=== PATIENT | female | born 1940 | race Caucasian/White ===

== ENCOUNTER → 2019-08-07 | Emergency (ER) | payer OTHER ==
[~2019-08-07] VITALS: Ht 157.5 cm; Wt 55.8 kg
[2019-08-07 15:59] VITALS: BP_SYST 119
--- NOTE | 2019-08-07 17:09 | NUR ---
Patient given written and verbal discharge instructions and verbalizes understanding. ER MD discussed with patient the results and treatment provided. Patient in stable condition. ID arm band removed. Rx of Tramdol given. Patient educated on pain management and to follow up with PMD. Pain Scale 3/10Opportunity for questions provided and answered. Medication side effect fact sheet provided.
--- NOTE | 2019-08-07 17:15 | NUR ---
ER at bedside examining patient.
--- NOTE | 2019-08-07 17:35 | NUR ---
pt currently gettin an x-ray at the bedside
--- NOTE | 2019-08-07 17:40 | NUR ---
gino wrap applied to the left knee
[2019-08-07 18:10] VITALS: BP_SYST 119
--- NOTE | 2019-08-07 18:10 | NUR ---
Patient given written and verbal discharge instructions and verbalizes understanding. ER MD discussed with patient the results and treatment provided. Patient in stable condition. ID arm band removed. Patient educated on pain management and to follow up with PMD. Pain Scale 3/10. Opportunity for questions provided and answered. Medication side effect fact sheet provided.
== END | disposition still patient (30) ==
LOC: SED 15:41
DX: S83.92XA Sprain of unspecified site of left knee, initial encounter (principal); S63.501A Unspecified sprain of right wrist, initial encounter; J45.909 Unspecified asthma, uncomplicated; I10 Essential (primary) hypertension; Z88.5 Allergy status to narcotic agent; W01.0XXA Fall on same level from slipping, tripping and stumbling without subsequent striking against object, initial encounter; Y93.89 Activity, other specified; Y92.89 Other specified places as the place of occurrence of the external cause; Y99.8 Other external cause status
CPT/HCPCS: 73564; 99283

== ENCOUNTER 2020-06-29 01:51 | Emergency (ER) | payer OTHER ==
[~2020-06-29] VITALS: Ht 152.4 cm; Wt 61.2 kg
[2020-06-29 01:55] VITALS: BP_SYST 155
--- NOTE | 2020-06-29 01:55 | NUR ---
Placed in room 5 . Placed on child monitor, blood pressure machine and pulse oximeter. To gown for exam. Side rails up. Report given to Anjali KUO.
--- NOTE | 2020-06-29 01:56 | NUR ---
ER at bedside examining patient.
[2020-06-29] MEDS ORDERED: NACL 0.9% 1,000 ML IV ONE (02:30)
[2020-06-29 02:53] LABS: BASOPHILS % (AUTO) 0.6 % (0.0-2.0); EOSINOPHILS # (AUTO) 0.3 K/uL (0.0-0.4); LYMPHOCYTES # (AUTO) 2.2 K/uL (1.0-5.5); MEAN CORPUSCULAR HEMOGLOBIN 29 pg (27-31); MONOCYTES # (AUTO) 0.5 K/uL (0.0-1.0); WHITE BLOOD COUNT (AUTO) 6.9 K/uL (4.8-10.8)
[2020-06-29 03:05] LABS: EOSINOPHILS % (AUTO) 3.8 % (0.0-4.0); HEMATOCRIT 39.8 % (36-48); HEMOGLOBIN 13.1 g/dL (12.0-16.0); LYMPHOCYTES % (AUTO) 31.5 % (20.5-51.5); MEAN CORPUSCULAR HGB CONC 33 % (32-36); MEAN CORPUSCULAR VOLUME 86 fL (79.0-98.0); MONOCYTES % (AUTO) 7.4 % (1.7-9.3); NEUTROPHILS # (AUTO) 3.9 K/uL (1.8-7.7); NEUTROPHILS % (AUTO) 56.7 % (40.0-70.0); PLATELET COUNT (AUTO) 273 K/uL (130-430); RED BLOOD CELL COUNT(AUTO) 4.61 MIL/uL (4.2-6.2); RED CELL DISTRIBUTION WIDTH 14.5 % (9.0-15.0)
[2020-06-29 03:06] LABS: ANION GAP 2 (5-15); CALCIUM 8.3 mg/dL (8.4-11.0); CHLORIDE 105 mmol/L (98-107); CREATININE 1.14 mg/dL (0.55-1.30); GLUCOSE 85 mg/dL (70-99); POTASSIUM 4.1 mmol/L (3.5-5.1); SODIUM SERUM 138 mmol/L (136-145); UREA NITROGEN, BLOOD 34 mg/dL (8-21)
[2020-06-29 03:09] LABS: PROTHROMBIN TIME 10.2 SECS (9.5-12.5)
[2020-06-29 03:18] LABS: ALANINE AMINOTRANSFERASE 35 U/L (12-78); ALBUMIN 3.2 g/dL (3.4-4.8); ASPARTATE AMINOTRANSFERASE 24 U/L (10-37); TOTAL BILIRUBIN 0.2 mg/dL (0.0-1.0)
[2020-06-29 03:19] LABS: ALCOHOL, BLOOD < 3 mg/dL (<10)
--- NOTE | 2020-06-29 03:30 | NUR ---
IV STARTED RT HAND #20 NS 1000ML BOLUS STARTED
--- NOTE | 2020-06-29 03:40 | NUR ---
PT GIVEN SWALLOW TESTS NO DIFFICULTY SWALLOWING WATER
--- NOTE | 2020-06-29 04:06 | NUR ---
PT AMBULATED TO BR ;VOIDED URINE SPECIMEN TO LAB
[2020-06-29 04:18] LABS: BILIRUBIN,URINE NEGATIVE (NEGATIVE); BLOOD, URINE 1+ (NEGATIVE); CLARITY/URINE CLEAR (CLEAR); COLOR,URINE YELLOW (YELLOW); GLUCOSE,URINE NEGATIVE (NEGATIVE); KETONES,URINE NEGATIVE (NEGATIVE); LEUKOCYTE ESTERASE ,URINE TRACE (NEGATIVE); NITRITE, URINE NEGATIVE (NEGATIVE); PROTEIN URINE NEGATIVE (NEGATIVE); UROBILINOGEN,URINE 0.2 (0.2-1.0)
[2020-06-29 04:21] LABS: BARBITURATE, URINE NEGATIVE (NEG <=200); BENZODIAZEPINE, URINE NEGATIVE (NEG <=150); CANNABINOID, URINE NEGATIVE (NEG <=50); COCAINE, URINE NEGATIVE (NEG <=150); METHAMPHETAMINES SCREEN,URINE NEGATIVE (NEG <=500); OPIATE, URINE NEGATIVE (NEG <=100); PHENCYCLIDINE SCREEN,URINE NEGATIVE (NEG <=25); UR TRICYCLIC ANTIDEPRESSANTS NEGATIVE (NEG <=300); URINE AMPHETAMINE NEGATIVE (NEG <=500); URINE METHADONE NEGATIVE (NEG <=200); URINE OXYCODONE SCREEN NEGATIVE (NEG <=100); URINE PROPOXYPHENE SCREEN NEGATIVE (NEG <=300)
[2020-06-29 04:26] LABS: BACTERIA,URINE RARE /HPF (None Seen); RBC,URINE 0-3 /HPF (0-3)
--- NOTE | 2020-06-29 05:03 | NUR ---
DR FARIAS ADVISED PT REQUESTING TO GO HOME
--- NOTE | 2020-06-29 05:25 | NUR ---
PT DISCHGED WITH AFTERCARE INSTRUCTIONS AND RX GIVEN AND UNDERSTOOD IV DCD SITE WNL AOX4 RESP EVEN STABLE
[2020-06-29 05:30] VITALS: BP_SYST 136
== END 2020-06-29 05:25 | disposition home or self-care (01) ==
LOC: SED 01:51
DX: R41.82 Altered mental status, unspecified (principal); N39.0 Urinary tract infection, site not specified; T42.6X5A Adverse effect of other antiepileptic and sedative-hypnotic drugs, initial encounter; J45.909 Unspecified asthma, uncomplicated; I10 Essential (primary) hypertension; Z20.828 Contact with and (suspected) exposure to other viral communicable diseases; Z88.5 Allergy status to narcotic agent; Z88.8 Allergy status to other drugs, medicaments and biological substances; Y92.89 Other specified places as the place of occurrence of the external cause
CPT/HCPCS: 36415; 70450; 71045; 80053; 80307; 81000; 85025; 85610; 85730; 87426; 93005; 96360; 99285; G0482; J7030

== ENCOUNTER 2023-12-01 14:53 | Inpatient (IN) | payer OTHER ==
[~2023-12-01] VITALS: Ht 156.2 cm; Wt 65.8 kg
[~2023-12-01 14:53] MED LIST: AMLO2.5T50 PO; BUDE0.25 IH; DONE10TA44 PO; ESCI10TA PO; LISI40TA13 PO; LORA10TA7 PO; MEMA5TAB PO; MONT-47 PO; OMEP40CA20 PO; OSCD500 PO; PANT40TA45 PO; SIMV-341 PO; SUCR1TAB2 PO
[2023-12-01 14:57] VITALS: BP_SYST 104; PULSE 72; RESP 18; TEMP 98.3; O2SAT 97
[2023-12-01 15:59] LABS: BASOPHILS # (AUTO) 0.1 K/uL (0.0-0.2); BASOPHILS % (AUTO) 0.6 % (0.0-2.0); EOSINOPHILS # (AUTO) 0.2 K/uL (0.0-0.4); EOSINOPHILS % (AUTO) 2.1 % (0.0-4.0); HEMOGLOBIN 11.8 g/dL (12.0-16.0); LYMPHOCYTES # (AUTO) 1.9 K/uL (1.0-5.5); LYMPHOCYTES % (AUTO) 15.8 % (20.5-51.5); MEAN CORPUSCULAR HEMOGLOBIN 27 pg (27-31); MEAN CORPUSCULAR HGB CONC 33 % (32-36); MEAN CORPUSCULAR VOLUME 83 fL (79.0-98.0); MONOCYTES # (AUTO) 0.7 K/uL (0.0-1.0); MONOCYTES % (AUTO) 5.7 % (1.7-9.3); NEUTROPHILS # (AUTO) 9.1 K/uL (1.8-7.7); NEUTROPHILS % (AUTO) 75.8 % (40.0-70.0); PLATELET COUNT (AUTO) 326 K/uL (130-430); RED BLOOD CELL COUNT(AUTO) 4.33 MIL/uL (4.2-6.2); RED CELL DISTRIBUTION WIDTH 14.5 % (9.0-15.0)
[2023-12-01 16:20] LABS: ANION GAP 12 (5-15); CALCIUM 8.9 mg/dL (8.4-11.0); CARBON DIOXIDE 25 mmol/L (23-29); CHLORIDE 103 mmol/L (98-107); CREATININE 1.97 mg/dL (0.55-1.30); GLUCOSE 126 mg/dL (74-106); POTASSIUM 3.8 mmol/L (3.5-5.1); SODIUM SERUM 140 mmol/L (136-145); UREA NITROGEN, BLOOD 55 mg/dL (8-21)
[2023-12-01 16:27] LABS: ALANINE AMINOTRANSFERASE 16 U/L (12-78); ALBUMIN 2.8 g/dL (3.4-4.8); ASPARTATE AMINOTRANSFERASE < 5 U/L (10-37); BILIRUBIN,DIRECT 0.1 mg/dL (0.0-0.3); LIPASE 56 U/L (16-77); TOTAL BILIRUBIN 0.4 mg/dL (0.0-1.0); TOTAL PROTEIN, SERUM 6.3 g/dL (6.4-8.3)
[2023-12-01 16:55] LABS: BILIRUBIN,URINE NEGATIVE (NEGATIVE); BLOOD, URINE 1+ (NEGATIVE); CLARITY/URINE HAZY (CLEAR); COLOR,URINE YELLOW (YELLOW); GLUCOSE,URINE NEGATIVE (NEGATIVE); KETONES,URINE TRACE (NEGATIVE); LEUKOCYTE ESTERASE ,URINE 2+ (NEGATIVE); NITRITE, URINE NEGATIVE (NEGATIVE); PH,URINE 5.5 (5.0-8.0); PROTEIN URINE NEGATIVE (NEGATIVE); UROBILINOGEN,URINE 0.2 (0.2-1.0)
[2023-12-01 17:28] LABS: BACTERIA,URINE MANY /HPF (None Seen); WBC,URINE 20-50 /HPF (0-3)
[2023-12-01] MEDS ORDERED: SENN-307 PO (17:32)
[2023-12-01] MEDS ORDERED: PRED20TA PO (17:32)
[2023-12-01] MEDS ORDERED: LIP10 PO (17:32)
[2023-12-01] MEDS ORDERED: MULT-1117 PO (17:32)
[2023-12-01] MEDS: NACL 0.9% 1,000 ML IV ONE ×2 (17:44→18:15)
[2023-12-01] MEDS ORDERED: ACETAMINOPHEN 325 MG TABLET PO PRN (17:45)
[2023-12-01] MEDS ORDERED: cefTRIAXone 1 GM VIAL ONE (18:11)
[2023-12-01] MEDS: cefTRIAXone 1 GM in D5W 50 ML IV ONE (18:15)
[2023-12-01] MEDS: SENNOSIDES/DOCUSATE SODIUM 1 TAB TABLET(SENOKOT-S) PO SCH (21:00)
[2023-12-01 21:03] VITALS: BP_SYST 123; PULSE 64; RESP 18; TEMP 98.7
[2023-12-01 21:30] VITALS: O2SAT 96
[2023-12-01] MEDS: DONEPEZIL HCL 5 MG TABLET (ARICEPT) PO SCH (22:37)
[2023-12-01 23:32] VITALS: BP_SYST 117; PULSE 61; TEMP 97.6; O2SAT 96
[2023-12-02 05:11] LABS: BASOPHILS % (AUTO) 0.5 % (0.0-2.0); EOSINOPHILS # (AUTO) 0.3 K/uL (0.0-0.4); EOSINOPHILS % (AUTO) 3.4 % (0.0-4.0); HEMATOCRIT 34.9 % (36-48); HEMOGLOBIN 11.6 g/dL (12.0-16.0); LYMPHOCYTES # (AUTO) 1.7 K/uL (1.0-5.5); LYMPHOCYTES % (AUTO) 19.6 % (20.5-51.5); MEAN CORPUSCULAR HEMOGLOBIN 28 pg (27-31); MEAN CORPUSCULAR HGB CONC 33 % (32-36); MEAN CORPUSCULAR VOLUME 84 fL (79.0-98.0); MONOCYTES # (AUTO) 0.6 K/uL (0.0-1.0); MONOCYTES % (AUTO) 6.8 % (1.7-9.3); NEUTROPHILS % (AUTO) 69.7 % (40.0-70.0); PLATELET COUNT (AUTO) 319 K/uL (130-430); RED BLOOD CELL COUNT(AUTO) 4.16 MIL/uL (4.2-6.2); RED CELL DISTRIBUTION WIDTH 14.6 % (9.0-15.0); WHITE BLOOD COUNT (AUTO) 8.5 K/uL (4.8-10.8)
[2023-12-02 05:44] LABS: ALANINE AMINOTRANSFERASE 16 U/L (12-78); ALBUMIN 2.6 g/dL (3.4-4.8); ANION GAP 9 (5-15); ASPARTATE AMINOTRANSFERASE < 5 U/L (10-37); CALCIUM 8.5 mg/dL (8.4-11.0); CARBON DIOXIDE 27 mmol/L (23-29); CHLORIDE 102 mmol/L (98-107); CREATININE 1.58 mg/dL (0.55-1.30); GLUCOSE 105 mg/dL (74-106); POTASSIUM 3.7 mmol/L (3.5-5.1); SODIUM SERUM 138 mmol/L (136-145); TOTAL BILIRUBIN 0.3 mg/dL (0.0-1.0); UREA NITROGEN, BLOOD 46 mg/dL (8-21)
[2023-12-02 08:27] VITALS: BP_SYST 125; PULSE 63; RESP 17; TEMP 96.8; O2SAT 96
[2023-12-02] MEDS ORDERED: ESCITALOPRAM OXALATE 10 MG TABLET PO SCH (09:00)
[2023-12-02] MEDS: SIMVASTATIN 10 MG TABLET PO SCH (09:54)
[2023-12-02] MEDS: MEMANTINE HCL 5 MG TABLET PO SCH (09:54)
[2023-12-02] MEDS: CITALOPRAM HYDROBROMIDE 20 MG TABLET PO SCH (09:54)
[2023-12-02 12:52] VITALS: BP_SYST 127; PULSE 71; RESP 15; TEMP 97.8; O2SAT 97
[2023-12-02] MEDS ORDERED: AMLO5TAB92 PO (13:34)
[2023-12-02 19:00] VITALS: BP_SYST 145; PULSE 62; RESP 17; TEMP 97.5; O2SAT 100
[2023-12-02] MEDS: cefTRIAXone 1 GM IVPB PREMIX 50 ML IV SCH (20:59)
[2023-12-02] MEDS: cefTRIAXone 1 GM IVPB PREMIX 50 ML IV ONE (21:00)
[2023-12-02] MEDS: CALCIUM CARBONATE 500 MG/ TAB.CHEW PO PRN (22:45)
[2023-12-02 23:00] VITALS: O2SAT 100
[2023-12-03] VITALS: BP_SYST 167; PULSE 65; RESP 17; TEMP 98; O2SAT 99
[2023-12-03] MEDS: ONDANSETRON HCL 4 MG/2 ML VIAL IVP PRN (00:50)
[2023-12-03 04:12] VITALS: BP_SYST 145; PULSE 62; RESP 16; TEMP 97.5; O2SAT 100
[2023-12-03 05:45] VITALS: BP_SYST 147; PULSE 71; RESP 17; TEMP 97.2; O2SAT 97
[2023-12-03 07:02] LABS: BASOPHILS # (AUTO) 0.1 K/uL (0.0-0.2); BASOPHILS % (AUTO) 0.7 % (0.0-2.0); EOSINOPHILS # (AUTO) 0.2 K/uL (0.0-0.4); EOSINOPHILS % (AUTO) 2.8 % (0.0-4.0); HEMATOCRIT 37.6 % (36-48); HEMOGLOBIN 12.4 g/dL (12.0-16.0); LYMPHOCYTES # (AUTO) 1.5 K/uL (1.0-5.5); LYMPHOCYTES % (AUTO) 16.8 % (20.5-51.5); MEAN CORPUSCULAR HEMOGLOBIN 27 pg (27-31); MEAN CORPUSCULAR HGB CONC 33 % (32-36); MEAN CORPUSCULAR VOLUME 83 fL (79.0-98.0); MONOCYTES # (AUTO) 0.6 K/uL (0.0-1.0); MONOCYTES % (AUTO) 6.6 % (1.7-9.3); NEUTROPHILS # (AUTO) 6.4 K/uL (1.8-7.7); NEUTROPHILS % (AUTO) 73.1 % (40.0-70.0); PLATELET COUNT (AUTO) 353 K/uL (130-430); RED BLOOD CELL COUNT(AUTO) 4.53 MIL/uL (4.2-6.2); RED CELL DISTRIBUTION WIDTH 14.1 % (9.0-15.0); WHITE BLOOD COUNT (AUTO) 8.8 K/uL (4.8-10.8)
[2023-12-03 07:25] LABS: ALANINE AMINOTRANSFERASE 25 U/L (12-78); ALBUMIN 2.9 g/dL (3.4-4.8); ANION GAP 7 (5-15); ASPARTATE AMINOTRANSFERASE 7 U/L (10-37); CALCIUM 8.8 mg/dL (8.4-11.0); CARBON DIOXIDE 27 mmol/L (23-29); CHLORIDE 103 mmol/L (98-107); CREATININE 1.15 mg/dL (0.55-1.30); GLUCOSE 92 mg/dL (74-106); POTASSIUM 4.4 mmol/L (3.5-5.1); SODIUM SERUM 137 mmol/L (136-145); TOTAL BILIRUBIN 0.4 mg/dL (0.0-1.0); TOTAL PROTEIN, SERUM 6.5 g/dL (6.4-8.3); UREA NITROGEN, BLOOD 23 mg/dL (8-21)
[2023-12-03 08:36] VITALS: BP_SYST 153; PULSE 69; RESP 15; TEMP 99; O2SAT 97
[2023-12-03] MEDS: POLYETHYLENE GLYCOL 3350, 17 GM/ POWD.PACK PO SCH (09:56)
[2023-12-03] MEDS: POLYETHYLENE GLYCOL 3350, 17 GM/ POWD.PACK PO ONE (09:56)
[2023-12-03] MEDS ORDERED: CEPH250C PO (11:37)
[2023-12-03] MEDS ORDERED: SUCR1TAB2 PO (11:56)
[2023-12-03 13:30] VITALS: BP_SYST 134; PULSE 68; RESP 16; TEMP 99; O2SAT 98
[2023-12-03] MEDS: SUCRALFATE 1 GM/10 ML UDC GT ONE (13:51)
[2023-12-03] MEDS: PANTOPRAZOLE SODIUM 40 MG/VIAL (PROTONIX) IVP ONE (13:51)
[2023-12-03] MEDS: amLODIPine BESYLATE 5 MG TABLET PO ONE (13:51)
[2023-12-03 13:55] VITALS: BP_SYST 134; PULSE 68; RESP 15; TEMP 99; O2SAT 98
[2023-12-03] MEDS ORDERED: SUCRALFATE 1 GM TABLET PO SCH (17:00)
[2023-12-04] MEDS ORDERED: amLODIPine BESYLATE 5 MG TABLET PO SCH (09:00)
== END 2023-12-03 14:20 | disposition home or self-care (01) | DRG 683 ==
LOC: SED 14:53 → STU 17:41 → SMU 12-03 10:31 → STU 12-03 11:14
PROVIDERS: ADMIT Family Medicine; ATTEND Family Medicine
DX: N17.9 Acute kidney failure, unspecified (principal); E44.0 Moderate protein-calorie malnutrition; N39.0 Urinary tract infection, site not specified; E86.0 Dehydration; R55 Syncope and collapse; J45.909 Unspecified asthma, uncomplicated; I10 Essential (primary) hypertension; F03.90 Unspecified dementia, unspecified severity, without behavioral disturbance, psychotic disturbance, mood disturbance, and anxiety; D72.829 Elevated white blood cell count, unspecified; E78.5 Hyperlipidemia, unspecified; Z79.899 Other long term (current) drug therapy; Z88.5 Allergy status to narcotic agent; Z68.27 Body mass index [BMI] 27.0-27.9, adult
CPT/HCPCS: 36415; 70450-TC; 71045; 80048; 80053; 80076; 81000; 81001; 81015; 83605; 83690; 84484; 85025; 87040; 87086; 87186; 93005; 93306; 93880; 96361; 96365; 97110-GP; 97112-GP; 97116-GP; 97530-GP; 99285; C9113; G0378; J0696; J2405

== ENCOUNTER 2023-12-08 08:30 | Inpatient (IN) | payer OTHER ==
[~2023-12-08] VITALS: Ht 152.4 cm; Wt 62.3 kg
[~2023-12-08 08:30] MED LIST changes: +AMLO5TAB92 PO; +CEPH250C PO; +LIP10 PO; +MULT-1117 PO; +PRED20TA PO; +SENN-307 PO
[2023-12-08 08:39] VITALS: BP_SYST 149; PULSE 71; RESP 20; TEMP 97.9; O2SAT 98
[2023-12-08] MEDS: MAG-AL HYDROX/SIMETH 30 ML UDC PO ONE (09:03)
[2023-12-08] MEDS: FAMOTIDINE 20 MG TABLET PO ONE (09:03)
[2023-12-08 09:46] LABS: BASOPHILS # (AUTO) 0.1 K/uL (0.0-0.2); BASOPHILS % (AUTO) 0.7 % (0.0-2.0); EOSINOPHILS # (AUTO) 0.2 K/uL (0.0-0.4); EOSINOPHILS % (AUTO) 2.3 % (0.0-4.0); HEMATOCRIT 33.7 % (36-48); HEMOGLOBIN 11.1 g/dL (12.0-16.0); LYMPHOCYTES # (AUTO) 1.1 K/uL (1.0-5.5); MEAN CORPUSCULAR HEMOGLOBIN 27 pg (27-31); MEAN CORPUSCULAR HGB CONC 33 % (32-36); MEAN CORPUSCULAR VOLUME 83 fL (79.0-98.0); MONOCYTES # (AUTO) 0.4 K/uL (0.0-1.0); MONOCYTES % (AUTO) 5.5 % (1.7-9.3); NEUTROPHILS # (AUTO) 6.1 K/uL (1.8-7.7); NEUTROPHILS % (AUTO) 77.5 % (40.0-70.0); PLATELET COUNT (AUTO) 466 K/uL (130-430); RED BLOOD CELL COUNT(AUTO) 4.08 MIL/uL (4.2-6.2); RED CELL DISTRIBUTION WIDTH 14.4 % (9.0-15.0); WHITE BLOOD COUNT (AUTO) 7.8 K/uL (4.8-10.8)
[2023-12-08 10:01] LABS: ANION GAP 7 (5-15); CALCIUM 9.7 mg/dL (8.4-11.0); CARBON DIOXIDE 28 mmol/L (23-29); CHLORIDE 102 mmol/L (98-107); CREATININE 1.03 mg/dL (0.55-1.30); GLUCOSE 98 mg/dL (74-106); SODIUM SERUM 137 mmol/L (136-145); UREA NITROGEN, BLOOD 15 mg/dL (8-21)
[2023-12-08 10:08] LABS: ALANINE AMINOTRANSFERASE 17 U/L (12-78); ALBUMIN 2.6 g/dL (3.4-4.8); ASPARTATE AMINOTRANSFERASE 18 U/L (10-37); BILIRUBIN,DIRECT 0.1 mg/dL (0.0-0.3); LIPASE 39 U/L (16-77); TOTAL BILIRUBIN 0.3 mg/dL (0.0-1.0); TOTAL PROTEIN, SERUM 6.6 g/dL (6.4-8.3)
[2023-12-08] MEDS: fentaNYL CITRATE/PF 100 MCG/2 ML AMP IVP ONE (11:10)
[2023-12-08] MEDS: D5/0.45 NS 1,000 ML IV SCH (12:20)
[2023-12-08 13:53] VITALS: BP_SYST 167; PULSE 64; RESP 16; TEMP 98.4; O2SAT 98
[2023-12-08] MEDS ORDERED: LABETALOL HCL 20 MG/4 ML CARTRIDGE IVP PRN ×2 (14:30→15:04)
[2023-12-08 16:00] VITALS: BP_SYST 152; PULSE 65; RESP 16; TEMP 97.9; O2SAT 98
[2023-12-08] MEDS: SUCRALFATE 1 GM TABLET PO SCH (16:12)
[2023-12-08] MEDS: PANTOPRAZOLE SODIUM 40 MG/VIAL (PROTONIX) IVP ONE (16:12)
[2023-12-08] MEDS: LIDOCAINE PATCH 5% 1 EA TP ONE (16:12)
[2023-12-08] MEDS: amLODIPine BESYLATE 5 MG TABLET PO ONE (16:26)
[2023-12-08 19:50] VITALS: BP_SYST 156; PULSE 66; RESP 20; TEMP 97.4; O2SAT 96
[2023-12-08] MEDS: DONEPEZIL HCL 5 MG TABLET (ARICEPT) PO SCH (20:38)
[2023-12-08] MEDS: PANTOPRAZOLE SODIUM 40 MG/VIAL (PROTONIX) IVP SCH (20:38)
[2023-12-08] MEDS: SENNOSIDES/DOCUSATE SODIUM 1 TAB TABLET(SENOKOT-S) PO SCH (20:38)
[2023-12-08] MEDS: ENALAPRILAT DIHYDRATE 1.25 MG/ML VIAL IVP PRN (20:38)
[2023-12-09 01:00] VITALS: BP_SYST 126; PULSE 64; RESP 16; TEMP 97.2; O2SAT 95
[2023-12-09 08:00] VITALS: O2SAT 97
[2023-12-09 08:33] VITALS: BP_SYST 123; PULSE 71; RESP 18; TEMP 98.5; O2SAT 97
[2023-12-09] MEDS: CALCIUM CARBONATE/VITAMIN D3 1 TAB TABLET PO SCH (09:00)
[2023-12-09] MEDS: amLODIPine BESYLATE 5 MG TABLET PO SCH (09:00)
[2023-12-09] MEDS: MEMANTINE HCL 5 MG TABLET PO SCH (09:00)
[2023-12-09] MEDS: LIDOCAINE PATCH 5% 1 EA TP SCH (09:00)
[2023-12-09] MEDS: MULTIVITAMINS TAB 1 TABLET PO SCH (09:00)
[2023-12-09] MEDS: ATORVASTATIN 10 MG TABLET PO SCH (09:00)
[2023-12-09] MEDS: MIDAZOLAM HCL 5 MG/5 ML VIAL ONE (09:36)
[2023-12-09] MEDS: fentaNYL CITRATE/PF 100 MCG/2 ML AMP ONE (09:36)
[2023-12-09] MEDS ORDERED: SEVOFLURANE 15 MIN GAS INH ONE (10:45)
[2023-12-09] MEDS ORDERED: ePHEDrine sulfate 50 MG/ML VIAL ONE (10:45)
[2023-12-09] MEDS ORDERED: LIDOCAINE/EPI 1% 1:100000 20 ML VIAL ONE (10:45)
[2023-12-09] MEDS ORDERED: PROPOFOL 200MG/ 20ML VIAL (DIPRIVAN) IV ONE (10:45)
[2023-12-09] MEDS ORDERED: BUPIVACAINE /PF 0.25% 30 ML VIAL INJ ONE (10:45)
[2023-12-09] MEDS ORDERED: LR 1,000 ML IV.SOLN IV ONE (10:45)
[2023-12-09] MEDS ORDERED: DEXAMETHASONE SOD PHOSPHATE 4 MG/ML VIAL ONE (10:45)
[2023-12-09] MEDS ORDERED: SUCCINYLCHOLINE CHLORIDE 20 MG/ML(QUELICIN) ONE (10:45)
[2023-12-09] MEDS ORDERED: ONDANSETRON HCL 4 MG/2 ML VIAL ONE (10:45)
[2023-12-09] MEDS ORDERED: GLYCOPYRROLATE 0.2 MG/ML VIAL ONE (10:45)
[2023-12-09] MEDS ORDERED: ROCURONIUM BROMIDE 10 MG/ML (ZEMURON) ONE (10:45)
[2023-12-09 11:15] VITALS: BP_SYST 121; PULSE 62; RESP 18; TEMP 98.2; O2SAT 97
[2023-12-09 12:22] LABS: PROTHROMBIN TIME 10.2 SECS (9.5-12.5)
[2023-12-09] MEDS: PIPERACILLIN/TAZO 3.375 GM in D5W 50 ML IV SCH (14:00)
[2023-12-09] MEDS: ACETAMINOPHEN I.V. 1000 MG 100 ML IV ONE (14:09)
[2023-12-09] MEDS: HYDROmorphone 2 MG/ML VIAL ONE (14:09)
[2023-12-09] MEDS ORDERED: PANT40TA45 PO (14:34)
[2023-12-09] MEDS ORDERED: MONT-40 PO (14:34)
[2023-12-09] MEDS ORDERED: [UNRECOGNIZED DRUG - CODE] PO (14:34)
[2023-12-09] MEDS ORDERED: MEMA10TA PO (14:34)
[2023-12-09] MEDS ORDERED: SUCR1TAB2 PO (14:34)
[2023-12-09] MEDS ORDERED: BUDE10.7 INH (14:40)
[2023-12-09] MEDS ORDERED: MORPHINE 4 MG INJ. 4 MG/ML VIAL IVP PRN ×2 (15:45)
[2023-12-09] MEDS ORDERED: METOCLOPRAMIDE HCL 10 MG/2 ML VIAL IVP PRN (15:45)
[2023-12-09] MEDS ORDERED: ONDANSETRON HCL 4 MG/2 ML VIAL IVP PRN (15:45)
[2023-12-09] MEDS ORDERED: NALOXONE HCL 0.4 MG/ML AMP (NARCAN) IVP PRN (15:45)
[2023-12-09] MEDS ORDERED: HYDROmorphone 1 MG/ML INJ. CARTRIDGE IVP PRN (15:45)
[2023-12-09 17:04] VITALS: BP_SYST 129; PULSE 74; RESP 16; TEMP 97.4; O2SAT 97
[2023-12-09 20:20] VITALS: BP_SYST 126; PULSE 70; RESP 18; TEMP 97.6; O2SAT 100
[2023-12-09] MEDS: HYDROmorphone 1 MG/ML INJ. CARTRIDGE IM PRN (23:34)
[2023-12-10 00:05] VITALS: BP_SYST 104; PULSE 71; RESP 18; TEMP 97.7; O2SAT 94
[2023-12-10 07:09] LABS: HEMATOCRIT 31.7 % (36-48); HEMOGLOBIN 10.5 g/dL (12.0-16.0); LYMPHOCYTES # (AUTO) 0.8 K/uL (1.0-5.5); LYMPHOCYTES % (AUTO) 6.9 % (20.5-51.5); MEAN CORPUSCULAR HEMOGLOBIN 28 pg (27-31); MEAN CORPUSCULAR HGB CONC 33 % (32-36); MEAN CORPUSCULAR VOLUME 83 fL (79.0-98.0); MONOCYTES # (AUTO) 0.3 K/uL (0.0-1.0); MONOCYTES % (AUTO) 2.3 % (1.7-9.3); NEUTROPHILS # (AUTO) 10.9 K/uL (1.8-7.7); NEUTROPHILS % (AUTO) 90.8 % (40.0-70.0); PLATELET COUNT (AUTO) 478 K/uL (130-430); RED BLOOD CELL COUNT(AUTO) 3.82 MIL/uL (4.2-6.2); RED CELL DISTRIBUTION WIDTH 14.4 % (9.0-15.0)
[2023-12-10 07:29] LABS: ALANINE AMINOTRANSFERASE 54 U/L (12-78); ALBUMIN 2.3 g/dL (3.4-4.8); ANION GAP 7 (5-15); ASPARTATE AMINOTRANSFERASE 68 U/L (10-37); CALCIUM 8.3 mg/dL (8.4-11.0); CARBON DIOXIDE 27 mmol/L (23-29); CHLORIDE 101 mmol/L (98-107); CREATININE 1.02 mg/dL (0.55-1.30); GLUCOSE 149 mg/dL (74-106); POTASSIUM 4.2 mmol/L (3.5-5.1); SODIUM SERUM 135 mmol/L (136-145); TOTAL BILIRUBIN 0.2 mg/dL (0.0-1.0); UREA NITROGEN, BLOOD 14 mg/dL (8-21)
[2023-12-10 08:00] VITALS: BP_SYST 109; PULSE 74; RESP 17; TEMP 98; O2SAT 94
[2023-12-10 10:09] VITALS: O2SAT 99
[2023-12-10] MEDS ORDERED: ONDANSETRON HCL 4 MG/2 ML VIAL IVP PRN (13:00)
[2023-12-10 15:00] VITALS: BP_SYST 110; PULSE 82; TEMP 98
[2023-12-10] MEDS ORDERED: HYDROmorphone 1 MG/ML INJ. CARTRIDGE IVP PRN (17:45)
[2023-12-10] MEDS: HYDROcodone/ACETAMIN 5-325 MG TAB (NORCO/ VICODIN) PO PRN (18:01)
[2023-12-10 20:00] VITALS: BP_SYST 115; PULSE 85; RESP 18; TEMP 97.5; O2SAT 95
[2023-12-11 01:00] VITALS: BP_SYST 125; PULSE 85; RESP 18; TEMP 98.3; O2SAT 97
[2023-12-11 08:05] VITALS: BP_SYST 132; PULSE 70; RESP 17; TEMP 98; O2SAT 98
[2023-12-11 09:40] LABS: BASOPHILS % (AUTO) 0.3 % (0.0-2.0); EOSINOPHILS # (AUTO) 0.1 K/uL (0.0-0.4); EOSINOPHILS % (AUTO) 0.8 % (0.0-4.0); HEMATOCRIT 33.7 % (36-48); HEMOGLOBIN 11.2 g/dL (12.0-16.0); LYMPHOCYTES # (AUTO) 1.7 K/uL (1.0-5.5); LYMPHOCYTES % (AUTO) 16.2 % (20.5-51.5); MEAN CORPUSCULAR HEMOGLOBIN 28 pg (27-31); MEAN CORPUSCULAR HGB CONC 33 % (32-36); MEAN CORPUSCULAR VOLUME 84 fL (79.0-98.0); MONOCYTES # (AUTO) 0.4 K/uL (0.0-1.0); MONOCYTES % (AUTO) 4.1 % (1.7-9.3); NEUTROPHILS # (AUTO) 8.1 K/uL (1.8-7.7); NEUTROPHILS % (AUTO) 78.6 % (40.0-70.0); PLATELET COUNT (AUTO) 497 K/uL (130-430); RED BLOOD CELL COUNT(AUTO) 4.02 MIL/uL (4.2-6.2); RED CELL DISTRIBUTION WIDTH 14.6 % (9.0-15.0); WHITE BLOOD COUNT (AUTO) 10.3 K/uL (4.8-10.8)
[2023-12-11 09:58] LABS: ALANINE AMINOTRANSFERASE 41 U/L (12-78); ALBUMIN 2.5 g/dL (3.4-4.8); ANION GAP 12 (5-15); ASPARTATE AMINOTRANSFERASE 41 U/L (10-37); CARBON DIOXIDE 25 mmol/L (23-29); CHLORIDE 102 mmol/L (98-107); CREATININE 1.38 mg/dL (0.55-1.30); GLUCOSE 83 mg/dL (74-106); POTASSIUM 3.2 mmol/L (3.5-5.1); SODIUM SERUM 139 mmol/L (136-145); TOTAL BILIRUBIN 0.3 mg/dL (0.0-1.0); TOTAL PROTEIN, SERUM 6.4 g/dL (6.4-8.3); UREA NITROGEN, BLOOD 13 mg/dL (8-21)
[2023-12-11 09:59] VITALS: O2SAT 97
[2023-12-11 14:00] VITALS: BP_SYST 128; PULSE 75; RESP 18; TEMP 98; O2SAT 98
[2023-12-11] MEDS: POLYETHYLENE GLYCOL 3350, 17 GM/ POWD.PACK PO SCH (14:12)
[2023-12-11 20:00] VITALS: O2SAT 95
[2023-12-11 20:15] VITALS: BP_SYST 131; PULSE 78; RESP 20; TEMP 97.6; O2SAT 95
[2023-12-11] MEDS: DOCUSATE SODIUM 100 MG CAPSULE PO SCH (21:27)
[2023-12-12 01:00] VITALS: BP_SYST 133; PULSE 68; RESP 18; TEMP 97.9; O2SAT 96
[2023-12-12] MEDS ORDERED: ONDA-8 TL (07:55)
[2023-12-12 08:00] VITALS: O2SAT 99
[2023-12-12 08:16] VITALS: BP_SYST 161; PULSE 78; RESP 18; TEMP 98.1; O2SAT 99
[2023-12-12 09:49] LABS: BASOPHILS % (AUTO) 0.4 % (0.0-2.0); EOSINOPHILS # (AUTO) 0.1 K/uL (0.0-0.4); EOSINOPHILS % (AUTO) 1.4 % (0.0-4.0); HEMATOCRIT 31.7 % (36-48); HEMOGLOBIN 10.3 g/dL (12.0-16.0); LYMPHOCYTES # (AUTO) 1.7 K/uL (1.0-5.5); LYMPHOCYTES % (AUTO) 18.8 % (20.5-51.5); MEAN CORPUSCULAR HEMOGLOBIN 27 pg (27-31); MEAN CORPUSCULAR HGB CONC 33 % (32-36); MEAN CORPUSCULAR VOLUME 83 fL (79.0-98.0); MONOCYTES # (AUTO) 0.5 K/uL (0.0-1.0); MONOCYTES % (AUTO) 5.5 % (1.7-9.3); NEUTROPHILS # (AUTO) 6.5 K/uL (1.8-7.7); NEUTROPHILS % (AUTO) 73.9 % (40.0-70.0); PLATELET COUNT (AUTO) 482 K/uL (130-430); RED CELL DISTRIBUTION WIDTH 14.8 % (9.0-15.0); WHITE BLOOD COUNT (AUTO) 8.8 K/uL (4.8-10.8)
[2023-12-12 10:04] LABS: ALANINE AMINOTRANSFERASE 37 U/L (12-78); ALBUMIN 2.4 g/dL (3.4-4.8); ANION GAP 9 (5-15); ASPARTATE AMINOTRANSFERASE 23 U/L (10-37); CALCIUM 8.9 mg/dL (8.4-11.0); CARBON DIOXIDE 27 mmol/L (23-29); CHLORIDE 104 mmol/L (98-107); CREATININE 1.21 mg/dL (0.55-1.30); GLUCOSE 101 mg/dL (74-106); POTASSIUM 3.7 mmol/L (3.5-5.1); SODIUM SERUM 140 mmol/L (136-145); TOTAL BILIRUBIN 0.3 mg/dL (0.0-1.0); TOTAL PROTEIN, SERUM 6.1 g/dL (6.4-8.3); UREA NITROGEN, BLOOD 9 mg/dL (8-21)
[2023-12-12 11:13] VITALS: BP_SYST 129; PULSE 72; RESP 16; TEMP 97; O2SAT 95
[2023-12-12 15:05] VITALS: BP_SYST 130; PULSE 76; RESP 16; TEMP 96.4; O2SAT 95
[2023-12-12 15:07] VITALS: BP_SYST 128; PULSE 94; RESP 16; TEMP 98.1; O2SAT 99
== END 2023-12-12 15:45 | disposition home or self-care (01) | DRG 417 ==
LOC: SED 08:30 → SMU 12:13 → OBSVTOIN 12-09 13:51
PROVIDERS: ADMIT Specialist; ATTEND Specialist
PROC: 0DB68ZX Excision of Stomach, Via Natural or Artificial Opening Endoscopic, Diagnostic (ICD-10-PCS; 2023-12-09)
PROC: 0DNU4ZZ Release Omentum, Percutaneous Endoscopic Approach (ICD-10-PCS; 2023-12-09)
PROC: 0FB44ZZ Excision of Gallbladder, Percutaneous Endoscopic Approach (ICD-10-PCS; principal; 2023-12-09 10:00)
DX: K81.0 Acute cholecystitis (principal); E43 Unspecified severe protein-calorie malnutrition; J45.909 Unspecified asthma, uncomplicated; E78.00 Pure hypercholesterolemia, unspecified; K29.70 Gastritis, unspecified, without bleeding; K20.90 Esophagitis, unspecified without bleeding; I10 Essential (primary) hypertension; K44.9 Diaphragmatic hernia without obstruction or gangrene; G30.9 Alzheimer's disease, unspecified; K27.9 Peptic ulcer, site unspecified, unspecified as acute or chronic, without hemorrhage or perforation; F02.80 Dementia in other diseases classified elsewhere, unspecified severity, without behavioral disturbance, psychotic disturbance, mood disturbance, and anxiety; Z88.8 Allergy status to other drugs, medicaments and biological substances; Z88.5 Allergy status to narcotic agent; Z90.49 Acquired absence of other specified parts of digestive tract; Z90.710 Acquired absence of both cervix and uterus; Z79.899 Other long term (current) drug therapy; Z87.11 Personal history of peptic ulcer disease; Z87.891 Personal history of nicotine dependence; Z68.26 Body mass index [BMI] 26.0-26.9, adult
CPT/HCPCS: 36415; 43239; 71045; 72072; 78226; 80048; 80053; 80076; 83690; 84484; 85025; 85610; 87081; 88304; 88305; 88312; 88313; 93005; 97110-GP; 97116-GP; 97163-GP; 97530-GP; 99285; A9537; C1727; C9113; G0378; J0131; J0330; J1100; J1170; J2250; J2405; J2543; J2704; J3010; J3490; J7060; J7120; Q9967